=== PATIENT | male | born 1985 | race African-American/Black ===

== ENCOUNTER 2022-03-27 15:20 | Inpatient (IN) | payer OTHER ==
[2022-03-27 16:29] VITALS: BMI 21.6
[2022-03-27] MEDS ORDERED: NICOTINE 10 MG CARTRIDGE (INHALER) IH PRN (19:06)
[2022-03-27] MEDS ORDERED: IBUPROFEN 600 MG TABLET (FP) PO PRN (19:06)
[2022-03-27] MEDS ORDERED: BENZOCAINE/MENTHOL (CHLORASEPTIC ) LOZENGE MM PRN (19:06)
[2022-03-27] MEDS ORDERED: MAGNESIUM HYDROX 2400MG/30ML ORAL SUSPENSION 30 ML CUP PO PRN (19:06)
[2022-03-27] MEDS ORDERED: ACETAMINOPHEN 325 MG TABLET (FP) PO PRN ×2 (19:06)
[2022-03-27] MEDS ORDERED: DICYCLOMINE HCL 10 MG CAPSULE PO PRN (19:06)
[2022-03-27] MEDS ORDERED: LOPERAMIDE HCL 2 MG CAPSULE PO PRN (19:06)
[2022-03-27] MEDS ORDERED: MAG HYDROX/AL HYDROX/SIMETH 30 ML UNIT-DOSE CUP PO PRN (19:06)
[2022-03-27] MEDS ORDERED: METHOCARBAMOL 500 MG TABLET PO PRN (19:06)
[2022-03-27] MEDS ORDERED: MAGNESIUM CITRATE 300 ML BOTTLE PO PRN (19:06)
[2022-03-27] MEDS ORDERED: IBUPROFEN 400 MG TABLET (FP) PO PRN (19:06)
[2022-03-27] MEDS ORDERED: BISMUTH SUBSALICYLATE 524 MG/30 ML PO PRN (19:06)
[2022-03-27] MEDS ORDERED: ONDANSETRON *ODT* 4 MG TABLET SL PRN (19:06)
[2022-03-27] MEDS ORDERED: MELATONIN 5 MG TABLETS PO SCH (22:00)
[2022-03-27] MEDS ORDERED: THIAMINE HCL 100 MG TABLET (FP) PO SCH (22:00)
[2022-03-27] MEDS: hydrOXYzine PAMOATE 25 MG CAPSULE (FP) PO SCH (22:57)
[2022-03-28] MEDS: hydrOXYzine PAMOATE 25 MG CAPSULE (FP) PO SCH ×2 (06:06→10:15)
[2022-03-28 09:36] VITALS: BP 101/66; PULSE 77; RESP 18; TEMP 97.2
[2022-03-28] MEDS ORDERED: PRENATAL VITAMINS W/ FOLIC ACID TABLET (FP) PO SCH (10:00)
[2022-03-28] MEDS ORDERED: NICOTINE 7 MG/24 HOURS TOPICAL PATCH TD SCH (10:00)
[2022-03-28 10:29] LABS: ALBUMIN 3.1 g/dl (3.4-5.0)
[2022-03-28 10:30] LABS: CALCIUM 8.4 mg/dL (8.5-10.1)
[2022-03-28 10:35] LABS: BILIRUBIN,TOTAL 0.4 mg/dL (0.2-1); TOT PROT 6.3 g/dl (6.4-8.2)
[2022-03-28 10:40] LABS: HEMATOCRIT 41.7 % (35.4-49); HEMOGLOBIN 13.9 GM/dL (11.7-16.9); MCHC 33.4 g/dl (32.0-35.9); MEAN CELL VOLUME 89.9 fl (80-96); MEAN PLT VOLUME 9.3 fl (7.5-11.1); PLATELET COUNT 188 10^3/uL (134-434); RBC 4.64 M/mm3 (4.00-5.60); RDW 13.5 % (11.9-15.9); WHITE BLOOD COUNT 3.4 K/mm3 (4.0-10.0)
== END 2022-03-28 10:42 | disposition home or self-care (01) | DRG 774 ==
LOC: YASAS 15:20 → Y6N 18:22
PROVIDERS: ADMIT Allergy & Immunology; ATTEND Surgery
PROC: HZ2ZZZZ Detoxification Services for Substance Abuse Treatment (ICD-10-PCS; principal; 2022-03-27)
DX: F10.230 Alcohol dependence with withdrawal, uncomplicated (principal); F14.20 Cocaine dependence, uncomplicated; F17.213 Nicotine dependence, cigarettes, with withdrawal; R76.11 Nonspecific reaction to tuberculin skin test without active tuberculosis; Z28.310 Unvaccinated for COVID-19; Z28.9 Immunization not carried out for unspecified reason; Z59.01 Sheltered homelessness; Z56.0 Unemployment, unspecified
CPT/HCPCS: 36415; 80053; 85027; 86780; C9803-CS; U0003; U0005